=== PATIENT | male | born 1970 | race Caucasian/White ===

== ENCOUNTER 2016-05-10 | Outpatient (CLI) | payer MEDICAID | END 2016-05-10 11:00 | disposition critical access hospital (66) | CPT/HCPCS: A0425; A0427 ==

== ENCOUNTER 2016-05-10 11:30 | Emergency (ER) | payer MEDICAID ==
[2016-05-10] MEDS ORDERED: HYDROmorphone 1 MG/ML SYRINGE IVP STA (12:17)
[2016-05-10] MEDS ORDERED: SODIUM CHLORIDE 0.9% 1,000 ML IV ONE (12:17)
[2016-05-10] MEDS ORDERED: ONDANSETRON 4 MG/2 ML VIAL IVP STA (12:17)
[2016-05-10] MEDS ORDERED: HYDROmorphone 1 MG/ML SYRINGE ONE (12:21)
[2016-05-10] MEDS ORDERED: ONDANSETRON 4 MG/2 ML VIAL ONE (12:21)
[2016-05-10] MEDS ORDERED: LIDOCAINE VISCOUS 2% 15 ML UDC MM STA (12:50)
[2016-05-10] MEDS ORDERED: MAG HYDROX/AL HYDROX/SIMETH 30 ML UDC PO STA (12:50)
[2016-05-10] MEDS ORDERED: MAG HYDROX/AL HYDROX/SIMETH 30 ML UDC ONE (13:18)
[2016-05-10] MEDS ORDERED: LIDOCAINE VISCOUS 2% 15 ML UDC MM ONE (13:18)
[2016-05-10] MEDS ORDERED: IOPAMIDOL-300 100 ML VIAL IVP ONE (13:27)
== END 2016-05-10 14:29 | disposition home or self-care (01) ==
DX: K27.9 Peptic ulcer, site unspecified, unspecified as acute or chronic, without hemorrhage or perforation (principal); B96.81 Helicobacter pylori [H. pylori] as the cause of diseases classified elsewhere; K80.20 Calculus of gallbladder without cholecystitis without obstruction; F15.10 Other stimulant abuse, uncomplicated; R00.1 Bradycardia, unspecified
CPT/HCPCS: 36415; 74177; 80053; 80306; 80320; 81003; 83605; 83690; 85025; 87339; 93005; 93010; 96374; 96375; 99284; 99285; A9270; J1170; Q9967